=== PATIENT | male | born 1955 | race Caucasian/White ===

== ENCOUNTER 2019-02-12 20:44 | Emergency (ER) | payer BC ==
[2019-02-12] MEDS ORDERED: Sodium Chloride 0.9% 10 ML Syringe FLUSH PRN (20:53)
--- NOTE | 2019-02-12 21:37 | EDM.PDOC ---
ED HPI GENERAL MEDICAL PROBLEM - General Chief Complaint: Chest Pain Stated Complaint: CHEST PAIN Time Seen by Provider: 02/12/19 20:46 Source of Information: Reports: Patient, Family, Old Records, RN, RN Notes Reviewed History Limitations: Reports: No Limitations - History of Present Illness INITIAL COMMENTS - FREE TEXT/NARRATIVE: Patient presents to the ED at [facility] complaining of chest pain that started around 8pm this evening. Patient states his pain started while at rest. He has a history of an CO in 1993. He states his pain is in the center of his chest. No radiation of the pain. He denies any N/V. Patient denies any cough or SOB. No dizziness or headaches. He states he took 2 baby ASA prior to presentation. Patient's daughter took his blood pressure and states it was quite elevated. Patient is complaint with his cardiac meds. He did eat spicy foods this evening for supper. He rates his pain 1.5/10 upon arrival. He states the pain is pressure-like and waxed and wains. Onset: Today Onset Date: 02/12/19 Onset Time: 20:00 Chest Pain Score (Numeric/FACES): 1 - Related Data Allergies Allergy/AdvReac Type Severity Reaction Status Date / Time No Known Allergies Allergy Verified 02/12/19 21:19 Past Medical History Cardiovascular History: Reports: High Cholesterol, Hypertension, CO Gastrointestinal History: Reports: GERD Social & Family History - Tobacco Use Smoking Status *Q: Never Smoker ED ROS GENERAL - Review of Systems Review Of Systems: See Below Constitutional: Denies: Fever, Chills Respiratory: Denies: Shortness of Breath, Cough Cardiovascular: Reports: Chest Pain, Blood Pressure Problem. Denies: Palpitations GI/Abdominal: Denies: Abdominal Pain, Nausea, Vomiting Skin: Reports: No Symptoms Neurological: Reports: No Symptoms ED EXAM, GENERAL - Physical Exam Exam: See Below Exam Limited By: No Limitations General Appearance: Alert, No Apparent Distress Respiratory/Chest: No Respiratory Distress, Lungs Clear, Normal Breath Sounds Cardiovascular: Normal Peripheral Pulses, Regular Rate, Rhythm Peripheral Pulses: 2+: Radial (L), Radial (R) GI/Abdominal: Normal Bowel Sounds, Soft, Non-Tender Neurological: Alert, Oriented Skin Exam: Warm, Dry, Intact, Normal Color Course - Vital Signs Last Recorded V/S: Last Vital Signs Temp 97.7 F 02/12/19 21:16 Pulse 79 02/12/19 21:16 Resp 20 02/12/19 21:16 BP 147/90 H 02/12/19 21:16 Pulse Ox 97 02/12/19 21:16 - Orders/Labs/Meds Orders: Active Orders 24 hr Category Date Time Status EKG 12 Lead [EKG Documentation Completion] [RC] STAT Care 02/12/19 20:47 Active Chest 2V [CR] Stat Exams 02/12/19 20:50 Taken Sodium Chloride 0.9% [Saline Flush] Med 02/12/19 20:53 Active 10 ml FLUSH ASDIRECTED PRN Peripheral IV Insertion Adult [OM.PC] Routine Oth 02/12/19 20:53 Ordered Medication Orders Sodium Chloride (Saline Flush) 10 ml FLUSH ASDIRECTED PRN PRN Reason: Keep Vein Open Labs: Laboratory Tests 02/12/19 02/12/19 02/12/19 Range/Units 21:04 21:04 21:09 WBC 10.3 H (4.0-10.0) x10^3/uL RBC 5.10 (4.5-6.0) x10^6/uL Hgb 15.2 (14.0-18.0) g/dL Hct 43.9 (40.0-52.0) % MCV 86.1 (78.0-93.0) fL MCH 29.8 (26.0-32.0) pg MCHC 34.6 (32.0-36.0) g/dL RDW Coeff of Mary Jane 12.5 (10.0-15.0) % Plt Count 312 (130-400) x10^3/uL Neut % (Auto) 60.2 (50.0-80.0) % Lymph % (Auto) 24.7 L (25.0-50.0) % [place] % (Auto) 13.0 H (2.0-11.0) % Eos % (Auto) 1.6 (0.0-4.0) % Baso % (Auto) 0.5 (0.2-1.2) % Sodium 143 (69-191) mmol/L Potassium 3.4 L (1.5-9.9) mmol/L Chloride 104 (54-184) mmol/L Carbon Dioxide 27 (21-32) mmol/L Anion Gap 15.4 (10-20) mmol/L BUN 18 (7-18) mg/dL Creatinine 1.4 H (0.70-1.30) mg/dL Est Cr Clr Drug Dosing 48.74 mL/min Estimated GFR (MDRD) 51 Glucose 144 H (74-106) mg/dL Calcium 8.8 (8.5-10.1) mg/dL Corrected Calcium 8.96 (8.5-10.1) mg/dL Total Bilirubin 0.5 (0.2-1.0) mg/dL AST 17 (15-37) U/L ALT 24 (16-63) U/L Alkaline Phosphatase 82 (46-116) U/L Creatine Kinase 121 (39-308) U/L POC Troponin I 0.00 (0.00-0.08) ng/mL Total Protein 7.9 (6.4-8.2) g/dL Albumin 3.8 (3.4-5.0) g/dL Globulin 4.1 Albumin/Globulin Ratio 0.93 Meds: Medications Generic Name Dose Route Start Last Admin Trade Name Freq PRN Reason Stop Dose Admin Sodium Chloride 10 ml 02/12/19 20:53 Saline Flush FLUSH ASDIRECTED PRN Keep Vein Open Departure - Departure Time of Disposition: 21:51 Disposition: Home, Self-Care 01 Condition: Good Clinical Impression: Chest pain Qualifiers: Chest pain type: unspecified Qualified Code(s): R07.9 - Chest pain, unspecified Instructions: Nonspecific Chest Pain Referrals: Varsha Hardwick, [Primary Care Provider] - Forms: ED Department Discharge Additional Instructions: 1. Stay well hydrated and rest 2. Continue same medications at home 3. See Dr. Hardwick this week for a follow up, may need to adjust your blood pressure medications 4. Call us for any questions or concerns - Problem List Review Problem List Initiated/Reviewed/Updated: Yes - My Orders Last 24 Hours: My Active Orders 02/12/19 20:47 EKG 12 Lead [EKG Documentation Completion] [RC] STAT 02/12/19 20:50 Chest 2V [CR] Stat 02/12/19 20:53 Sodium Chloride 0.9% [Saline Flush] 10 ml FLUSH ASDIRECTED PRN Peripheral IV Insertion Adult [OM.PC] Routine - Assessment/Plan Last 24 Hours: My Active Orders 02/12/19 20:47 EKG 12 Lead [EKG Documentation Completion] [RC] STAT 02/12/19 20:50 Chest 2V [CR] Stat 02/12/19 20:53 Sodium Chloride 0.9% [Saline Flush] 10 ml FLUSH ASDIRECTED PRN Peripheral IV Insertion Adult [OM.PC] Routine Assessment:: Chest Pain, unspecified Plan: Assessment, labs, EKG, and chest xray discussed with the patient. No acute findings or red flags on exam. Patient pain free at time of discharge. Continue with same home medications. However, I do recommend seeing PCP for control of blood pressure and med adjustment. Patient agrees with the plan of care.
[2019-02-12 21:40] LABS: ANION GAP 15.4 mmol/L (10-20)
--- NOTE | 2019-02-13 08:08 | CR ---
[id number] RAD/RAD Chest PA And Lateral EXAM: FRONTAL AND LATERAL CHEST INDICATION: Chest pain. COMPARISON: None. DISCUSSION: The heart and lungs are normal in appearance. IMPRESSION: 1. Negative exam. Antolin Gao MD 02/13/19 0807 Thank you for allowing us to participate in the care of your patient.
== END 2019-02-12 21:51 | disposition home or self-care (01) ==
LOC: VM.ED 20:44
DX: R07.9 Chest pain, unspecified (principal); I10 Essential (primary) hypertension; I25.2 Old myocardial infarction
CPT/HCPCS: 36415; 71046; 80053; 82550; 84484; 85025; 93005; 99285-25

== ENCOUNTER 2023-03-08 18:35 | Observation (INO) | payer MEDICARE, BC ==
[2023-03-08] MEDS ORDERED: Sodium Chloride 0.9% 1,000 ML IV ONE (18:51)
[2023-03-08] MEDS ORDERED: Ondansetron 4 MG/2 ML SDV IVPUSH ONE (18:51)
[2023-03-08] MEDS ORDERED: Meclizine 25 MG Tab PO ONE (18:51)
[2023-03-08 19:01] LABS: BASOPHILS ABSOLUTE AUTO 0.1 x10^3/uL (0.0-0.2); BASOPHILS PERCENT AUTO 0.5 % (0.2-1.2); EOSINOPHILS ABSOLUTE AUTO 0.2 x10^3/uL (0.0-0.5); EOSINOPHILS PERCENT AUTO 1.6 % (0.0-4.0); HEMATOCRIT 41.2 % (40.0-52.0); HEMOGLOBIN 14.3 g/dL (14.0-18.0); IMMATURE GRAN ABSOLUTE AUTO 0.03 x10^3/uL (0.00-0.07); LYMPHOCYTES ABSOLUTE AUTO 2.7 x10^3/uL (1.0-4.8); LYMPHOCYTES PERCENT AUTO 22.5 % (25.0-50.0); MEAN CORPUSCULAR HEMOGLOBIN 30.2 pg (26.0-32.0); MEAN CORPUSCULAR HGB CONC 34.7 g/dL (32.0-36.0); MEAN CORPUSCULAR VOLUME 86.9 fL (78.0-93.0); MONOCYTES ABSOLUTE AUTO 1.1 x10^3/uL (0.0-0.8); MONOCYTES PERCENT AUTO 9.4 % (2.0-11.0); NEUTROPHILS ABSOLUTE AUTO 7.9 x10^3/uL (1.8-7.7); NEUTROPHILS PERCENT AUTO 65.7 % (50.0-80.0); PLATELET COUNT,PLT 354 x10^3/uL (130-400); RED BLOOD CELL COUNT 4.74 x10^6/uL (4.5-6.0); WHITE BLOOD CELL COUNT,WBC 11.9 x10^3/uL (4.0-10.0)
[2023-03-08 19:19] LABS: A/G RATIO 0.95; ALANINE AMINOTRANSFERASE,ALT 35 U/L (16-63); ALBUMIN 3.7 g/dL (3.4-5.0); ALKALINE PHOSPHATASE 74 U/L (46-116); ANION GAP 16.1 mmol/L (5-15); ASPARTATE AMNIOTRANSFERASE,AST 20 U/L (15-37); BILIRUBIN TOTAL 0.4 mg/dL (0.2-1.0); BLOOD UREA NITROGEN,BUN 23 mg/dL (7-18); CARBON DIOXIDE,CO2 27 mmol/L (21-32); CHLORIDE,CL 102 mmol/L (98-107); CREATINE KINASE,CK 79 U/L (39-308); CREATININE 1.6 mg/dL (0.70-1.30); ESTIMATED GFR 47 mL/min (>=60); GLUCOSE RANDOM 167 mg/dL (70-99); MAGNESIUM 1.8 mg/dL (1.8-2.4); POTASSIUM,K 3.1 mmol/L (3.5-5.1); PROTEIN TOTAL,TP 7.6 g/dL (6.4-8.2); SODIUM,NA 142 mmol/L (136-145)
[2023-03-08] MEDS ORDERED: Ondansetron 4 MG Tab.DIS PO PRN (20:33)
[2023-03-08] MEDS ORDERED: Sodium Chloride 0.9% 10 ML Syringe FLUSH PRN (20:33)
[2023-03-08] MEDS ORDERED: Acetaminophen 325 MG Tab PO PRN (20:33)
[2023-03-08] MEDS: atorvaSTATin 40 MG Tab PO SCH ×2 (21:10→23:16)
[2023-03-08] MEDS: NS with KCl 40mEq 1,000 ML IV SCH (21:10)
[2023-03-08] MEDS: Meclizine 25 MG Tab PO SCH ×2 (21:10→23:16)
[2023-03-08] MEDS: Ondansetron 4 MG/2 ML SDV IV PRN (21:11)
[2023-03-09] MEDS: NS with KCl 40mEq 1,000 ML IV SCH (04:07)
[2023-03-09] MEDS: Ondansetron 4 MG/2 ML SDV IV PRN (06:11)
[2023-03-09 06:29] VITALS: BP 143/75; PULSE 74
[2023-03-09 06:53] LABS: BASOPHILS PERCENT AUTO 0.1 % (0.2-1.2); EOSINOPHILS PERCENT AUTO 0.1 % (0.0-4.0); HEMATOCRIT 37.4 % (40.0-52.0); HEMOGLOBIN 12.9 g/dL (14.0-18.0); IMMATURE GRAN ABSOLUTE AUTO 0.02 x10^3/uL (0.00-0.07); LYMPHOCYTES ABSOLUTE AUTO 1.3 x10^3/uL (1.0-4.8); LYMPHOCYTES PERCENT AUTO 12.5 % (25.0-50.0); MEAN CORPUSCULAR HGB CONC 34.5 g/dL (32.0-36.0); MONOCYTES ABSOLUTE AUTO 0.9 x10^3/uL (0.0-0.8); MONOCYTES PERCENT AUTO 8.7 % (2.0-11.0); NEUTROPHILS ABSOLUTE AUTO 8.2 x10^3/uL (1.8-7.7); NEUTROPHILS PERCENT AUTO 78.4 % (50.0-80.0); PLATELET COUNT,PLT 280 x10^3/uL (130-400); WHITE BLOOD CELL COUNT,WBC 10.5 x10^3/uL (4.0-10.0)
[2023-03-09] MEDS ORDERED: Omeprazole 20 MG Cap.CR PO SCH (07:00)
[2023-03-09 07:03] LABS: ANION GAP 12.7 mmol/L (5-15); CALCIUM 8.1 mg/dL (8.5-10.1); CREATININE 1.3 mg/dL (0.70-1.30); EST CRCL DRUG DOSING (CG) 49.76 mL/min; POTASSIUM,K 3.7 mmol/L (3.5-5.1)
[2023-03-09 07:08] LABS: APPEARANCE,URINE CLEAR (CLEAR); BILIRUBIN,URINE NEGATIVE (NEGATIVE); COLOR,URINE YELLOW (YELLOW); GLUCOSE,URINE NEGATIVE (NEGATIVE); KETONES,URINE NEGATIVE (NEGATIVE); LEUKOCYTE ESTERASE,URINE NEGATIVE (NEGATIVE); NITRITE,URINE NEGATIVE (NEGATIVE); OCCULT BLOOD,URINE TRACE-LYSED (NEGATIVE); PH,URINE 5.5 (5.0-8.0); PROTEIN,URINE NEGATIVE (NEGATIVE); UROBILINOGEN,URINE 0.2 EU/dL (0.2)
[2023-03-09 07:10] LABS: BACTERIA,URINE RARE /HPF (NOT SEEN); MUCUS,URINE RARE /LPF (NOT SEEN); RBC,URINE 0-5 /HPF (NOT SEEN); SQUAMOUS EPITHELIAL CELLS,UR NOT SEEN /HPF (NOT SEEN); WBC,URINE 0-5 /HPF (NOT SEEN)
[2023-03-09] MEDS: Meclizine 25 MG Tab PO SCH (08:54)
[2023-03-09] MEDS ORDERED: Metoprolol Succinate 50 MG Tab.ER PO SCH (09:00)
[2023-03-09] MEDS ORDERED: Ezetimibe 10 MG Tab PO SCH (09:00)
[2023-03-09] MEDS ORDERED: amLODIPine 5 MG Tab PO SCH (09:00)
[2023-03-09] MEDS ORDERED: Losartan 50 MG Tab PO SCH (09:00)
[2023-03-09] MEDS ORDERED: Hydrochlorothiazide 12.5 MG Cap PO SCH (09:00)
[2023-03-09] MEDS ORDERED: Aspirin 81 MG Tab.Chew PO SCH (09:00)
[2023-03-09] MEDS ORDERED: Iopamidol 755 Mg/ML 100 ML Bottle IVPUSH ONE (09:37)
[2023-03-09] MEDS ORDERED: Aspirin 81 MG Tab.Chew PO ONE (09:43)
== END 2023-03-09 10:15 | disposition short-term general hospital (02) ==
LOC: VM.ED 18:35 → VM.MS 20:04
PROVIDERS: ADMIT Physician Assistant Medical; ATTEND Physician Assistant Medical
DX: H81.13 Benign paroxysmal vertigo, bilateral (principal); I10 Essential (primary) hypertension; E11.9 Type 2 diabetes mellitus without complications; K21.9 Gastro-esophageal reflux disease without esophagitis; E78.00 Pure hypercholesterolemia, unspecified; Z79.82 Long term (current) use of aspirin; Z79.899 Other long term (current) drug therapy
CPT/HCPCS: 36415; 70450; 70496; 71045; 80048; 80053; 81001; 82550; 83735; 84484; 85025; 93005; 93010; 96361; 96374; 99223; 99239; 99285-25; A9270-GY; J2405; J3480; J7030; Q9967